=== PATIENT | male | born 1995 | race Hispanic/Latino ===

== ENCOUNTER 2019-06-02 14:22 | Emergency (ER) | payer OTHER ==
[~2019-06-02] VITALS: Ht 185.4 cm; Wt 97.0 kg
[2019-06-02] MEDS ORDERED: KETOROLAC 30 MG/ML VIAL (J1885) IV ONE (16:45)
[2019-06-02] MEDS ORDERED: NS 1,000 ML IV ONE (16:45)
--- NOTE | 2019-06-02 17:20 | REPVR ---
EXAM: CT Head Without Contrast EXAM DATE/TIME: 06/02/2019 4:42 PM CLINICAL HISTORY: 23 years old, male; Pain; Headache; Additional info: New onset REYES, vision changes TECHNIQUE: Imaging protocol: Computed tomography images of the head without contrast. Radiation optimization: All CT scans at this facility use at least one of these dose optimization techniques: automated exposure control; mA and/or kV adjustment per patient size (includes targeted exams where dose is matched to clinical indication); or iterative reconstruction. COMPARISON: No relevant prior studies available. FINDINGS: Brain: There is no evidence of infarct, casey-white matter differentiation is preserved. There is no hemorrhage or extra-axial collection. There is no mass. No evidence of subarachnoid hemorrhage. Ventricles: There is no hydrocephalus. Bones/joints: Unremarkable. No acute fracture. Sinuses: Visualized sinuses are unremarkable. No fluid levels. Mastoid air cells: Visualized mastoid air cells are well aerated. No mastoid effusion. Soft tissues: Unremarkable. IMPRESSION: No intracranial lesion or injury. Electronically signed by: Bruno Dawson On 06/02/2019 17:20:33 PM
[2019-06-02 17:42] LABS: BLOOD UREA NITROGEN 13 MG/DL (7-18); CALCIUM LEVEL 9.2 MG/DL (8.5-10.1); CARBON DIOXIDE LEVEL 26 MEQ/L (21-32); CHLORIDE LEVEL 104 MEQ/L (98-107); GLOMERULAR FILTRATION RATE > 60.0 (>60); GLUCOSE, FASTING 76 MG/DL (70-100); POTASSIUM SERUM 4.5 MEQ/L (3.5-5.1); SODIUM LEVEL 138 MEQ/L (136-145)
[2019-06-02 18:27] LABS: BASO % 0.5 % (0.0-1.0); EOS # 0.1 10^3/uL (0.0-0.50); EOS % 0.8 % (0.0-3.0); HEMATOCRIT 42.1 % (42.0-52.0); HEMOGLOBIN 14.6 g/dl (13.5-17.5); LYMPH # 1.3 10^3/uL (1.5-6.5); LYMPH % 20.2 % (24.0-44.0); MEAN CORPUSCULAR HEMOGLOBIN 30.2 pg (27.0-33.0); MEAN CORPUSCULAR HGB CONC 34.7 g/dl (32.0-36.5); MEAN CORPUSCULAR VOLUME 87.2 fl (80.0-96.0); MONO # 0.4 10^3/uL (0.0-0.8); MONO % 6.9 % (0.0-5.0); NEUTROPHILS # 4.5 10^3/uL (1.8-7.7); NEUTROPHILS % 71.3 % (36.0-66.0); PLATELET COUNT, AUTOMATED 158 10^3/uL (150-450); RED BLOOD COUNT 4.83 10^6/uL (4.30-6.10); WHITE BLOOD COUNT 6.4 10^3/uL (4.0-10.0)
[2019-06-02] MEDS ORDERED: TETRACAINE 0.5% OPHTH SOLN 4ML OS ONE (18:45)
[2019-06-02 19:48] VITALS: BP 111/53
[2019-06-02] MEDS ORDERED: KETO10TAB PO (20:03)
[2019-06-02] MEDS ORDERED: REGL10TA6 PO (20:03)
--- NOTE | 2019-06-04 05:50 | ECGEPIP ---
[facility] - ED Test Date: 2019-06-02 Pat Name: DEEPTI ELLIOTT Department: Room: - Gender: Male [employer]: SHAKA : 1995 Requested By: RACH Miller PA-C Order Number: [id number] Reading MD: Kg Mason Measurements Intervals [place] Rate: 73 P: 48 WY: 176 QRS: 69 QRSD: 110 T: 37 QT: 399 QTc: 442 Interpretive Statements SINUS RHYTHM BENIGN EARLY REPOLARIZATION NO PRIORS FOR COMPARISON Electronically Signed on 06-04-2019 5:50:16 EDT by Kg Mason
[2019-06-04 14:17] LABS: Lyme Disease IgG/IgM Antibodie <0.91 ISR (0.00-0.90); Lyme Disease IgM Ab Quantitati <0.80 index (0.00-0.79)
== END 2019-06-02 20:23 | disposition home or self-care (01) ==
LOC: M ED 14:22
DX: R51 Headache (principal); H57.12 Ocular pain, left eye
CPT/HCPCS: 70450; 80048; 85025; 86617; 93005; 96374; 99284; J1885